=== PATIENT | female | born 1980 | race Two or more races ===

== ENCOUNTER 2017-01-12 16:40 | Outpatient (CLI) | payer OTHER ==
[2017-01-12 17:51] LABS: APPEARANCE,URINE SLIGHTLY-CLOUDY; BILIRUBIN,URINE NEGATIVE (NEGATIVE); GLUCOSE, URINE NEGATIVE (NEGATIVE); KETONES,URINE NEGATIVE (NEGATIVE); LEUKOCYTE ESTERASE,URINE NEGATIVE (NEGATIVE); NITRITE,URINE NEGATIVE (NEGATIVE); PROTEIN,URINE NEGATIVE (NEGATIVE); URINE SPECIFIC GRAVITY 1.013; UROBILINOGEN,URINE NEGATIVE mg/dL (<2.0)
[2017-01-12 18:07] LABS: URINE BARBITURATES SCREEN NEGATIVE; URINE METHADONE SCREEN NEGATIVE; URINE OPIATES LOW NEGATIVE; URINE PHENCYCLIDINE SCREEN NEGATIVE
[2017-01-12 19:06] LABS: CHLAM PCR NOT DETECTED (NOT DETECT)
--- NOTE | 2017-01-12 19:34 | RADIOLOGY REPORT (SQ) ---
EXAM DESCRIPTION: U/S OB LIMITED COMPLETED DATE/TIME: 01/12/2017 7:24 pm REASON FOR STUDY: Cervical length, YANCY, presentation COMPARISON: None. TECHNIQUE: Limited transabdominal grayscale ultrasound for evaluation of specific requested obstetri lencho parameters. LIMITATIONS: None. FINDINGS: CERVICAL LENGTH: 2.7 cm Closed. YANCY: 16.6 cm. FHR: 140 beats per minute. PRESENTATION: Cephalic. OTHER: No other significant findings. IMPRESSION: LIMITED OBSTETRICAL ULTRASOUND WITH MEASURED PARAMETERS DELINEATED ABOVE. Trimester of : Third trimester - 28 weeks to delivery. TECHNICAL DOCUMENTATION: JOB ID: [id number]- All Rights Reserved
== END 2017-01-12 20:26 | disposition home or self-care (01) ==
LOC: LC 16:40
PROVIDERS: ATTEND Student in an Organized Health Care Education/Training Program
PROC: 4A1HXCZ Monitoring of Products of Conception, Cardiac Rate, External Approach (ICD-10-PCS; principal; 2017-01-12)
DX: O26.893 Other specified pregnancy related conditions, third trimester (principal); E86.0 Dehydration; O99.613 Diseases of the digestive system complicating pregnancy, third trimester; K92.89 Other specified diseases of the digestive system; Z3A.28 28 weeks gestation of pregnancy
CPT/HCPCS: 76815; 80307; 81001; 87086; 87491; 87591

== ENCOUNTER 2017-02-16 12:11 | Outpatient (CLI) | payer OTHER ==
--- NOTE | 2017-02-16 13:01 | Non Stress Test Report ---
Non Stress Test Datetime Report Generated by CPN: 02/16/2017 13:01 DEMOGRAPHIC EGA NST: 33.6 INDICATION Indication for Study: Ordered by Provider VITAL SIGNS Temperature - NST: 97.7 Pulse - NST: 110 RESP - NST: 18 NBPSYS NST: 97 NBPDIA NST: 57 MONITORING Monitor Explained: Monitor Explained; Test Explained; Patient Verbalized Understanding Time on Monitor: 02/16/2017 12:20 Time off Monitor: 02/16/2017 12:52 NST Duration: 32 NST INTERVENTIONS NST Interventions: PO Hydration; Reposition Patient Physician Notified NST: DR DIVINE BABY A: [id number] BABY A Movement : Present Contraction Frequency : NONE FHR Baseline : 145 Accelerations : 15X15 Decelerations : None Variability : Moderate 6-25bpm NST Review: Meets Criteria for Reactive NST NST Review and Verified By : Jace Rodriguez RNC NST Results: Reactive NST REPORT Report Trigger: Send Report
== END 2017-02-16 12:55 | disposition home or self-care (01) ==
LOC: LC 12:11
PROVIDERS: ATTEND Obstetrics & Gynecology
PROC: 4A1HXCZ Monitoring of Products of Conception, Cardiac Rate, External Approach (ICD-10-PCS; principal; 2017-02-16)
DX: O09.523 Supervision of elderly multigravida, third trimester (principal); Z3A.33 33 weeks gestation of pregnancy
CPT/HCPCS: 59025

== ENCOUNTER 2017-03-06 11:45 | Outpatient (CLI) | payer OTHER ==
[2017-03-06 12:31] LABS: APPEARANCE,URINE SLIGHTLY-CLOUDY; BILIRUBIN,URINE NEGATIVE (NEGATIVE); GLUCOSE, URINE NEGATIVE (NEGATIVE); KETONES,URINE NEGATIVE (NEGATIVE); LEUKOCYTE ESTERASE,URINE TRACE (NEGATIVE); NITRITE,URINE NEGATIVE (NEGATIVE); PROTEIN,URINE NEGATIVE (NEGATIVE); URINE SPECIFIC GRAVITY 1.006; UROBILINOGEN,URINE NEGATIVE mg/dL (<2.0)
[2017-03-06 12:54] LABS: URINE BARBITURATES SCREEN NEGATIVE; URINE METHADONE SCREEN NEGATIVE; URINE OPIATES LOW NEGATIVE; URINE PHENCYCLIDINE SCREEN NEGATIVE
== END 2017-03-06 12:43 | disposition home or self-care (01) ==
LOC: LC 11:45
PROVIDERS: ATTEND Obstetrics & Gynecology Gynecology
PROC: 4A1HXCZ Monitoring of Products of Conception, Cardiac Rate, External Approach (ICD-10-PCS; principal; 2017-03-06)
DX: O24.419 Gestational diabetes mellitus in pregnancy, unspecified control (principal); O09.523 Supervision of elderly multigravida, third trimester; Z3A.36 36 weeks gestation of pregnancy
CPT/HCPCS: 59025; 80307; 81005

== ENCOUNTER 2017-03-24 09:46 | Inpatient (IN) | payer OTHER ==
--- NOTE | 2017-03-24 09:59 | Non Stress Test Report ---
Non Stress Test Datetime Report Generated by CPN: 03/24/2017 09:59 DEMOGRAPHIC EGA NST: 36.3 INDICATION Indication for Study: Ordered by Provider Indication for Study (NST) Other: gdm VITAL SIGNS Temperature - NST: 99.3 Pulse - NST: 114 RESP - NST: 16 NBPSYS NST: 109 NBPDIA NST: 65 MONITORING Monitor Explained: Monitor Explained; Test Explained; Patient Verbalized Understanding Time on Monitor: 03/06/2017 11:59 Time off Monitor: 03/06/2017 12:39 NST Duration: 40 NST INTERVENTIONS NST Interventions: None Physician Notified NST: A Emmel CNM BABY A: [id number] Movement : Present Contraction Frequency : none FHR Baseline : 155 Accelerations : 15X15 Decelerations : None Variability : Moderate 6-25bpm NST Review: Meets Criteria for Reactive NST NST Review and Verified By : Jace Rodriguez [facility] NST Results: Reactive NST REPORT Report Trigger: Send Report
[2017-03-24 10:43] LABS: APPEARANCE,URINE CLOUDY; BILIRUBIN,URINE NEGATIVE (NEGATIVE); GLUCOSE, URINE NEGATIVE (NEGATIVE); KETONES,URINE NEGATIVE (NEGATIVE); LEUKOCYTE ESTERASE,URINE TRACE (NEGATIVE); NITRITE,URINE NEGATIVE (NEGATIVE); PROTEIN,URINE NEGATIVE (NEGATIVE); URINE SPECIFIC GRAVITY 1.017; UROBILINOGEN,URINE NEGATIVE mg/dL (<2.0)
[2017-03-24 10:46] LABS: AMNISURE (ROM) NEGATIVE (NEGATIVE)
[2017-03-24 11:07] LABS: URINE BARBITURATES SCREEN NEGATIVE; URINE METHADONE SCREEN NEGATIVE; URINE OPIATES LOW NEGATIVE; URINE PHENCYCLIDINE SCREEN NEGATIVE
[2017-03-24] MEDS ORDERED: DINOPROSTONE 10 MG VAGINAL INSERT.SR ONE (11:42)
[2017-03-24] MEDS ORDERED: DINOPROSTONE 10 MG VAGINAL INSERT.SR PV PRN (11:44)
[2017-03-24] MEDS ORDERED: RINGERS SOLUTION,LACTATED 300 ML IV ONE (11:44)
[2017-03-24 12:38] LABS: ABSOLUTE LYMPHOCYTES (AUTO) 1.7 10^3/uL (0.5-4.7); ABSOLUTE MONOCYTES (AUTO) 0.4 10^3/uL (0.1-1.4); ABSOLUTE NEUT (AUTO) 4.3 10^3/uL (1.7-8.2); BASOPHILS % (AUTO) 0.1 % (0-2); EOSINOPHILS % (AUTO) 0.5 % (0-6); HEMOGLOBIN 12.8 g/dL (12.0-15.5); HGB HCT DIFFERENCE 0.4; LYMPHOCYTES % (AUTO) 26.3 % (13-45); MEAN CORPUSCULAR HEMOGLOBIN 31.5 pg (27.0-33.4); MEAN CORPUSCULAR HGB CONC 33.8 g/dL (32.0-36.0); MEAN CORPUSCULAR VOLUME 93 fl (80-97); MONOCYTES % (AUTO) 6.7 % (3-13); RED BLOOD COUNT 4.07 10^6/uL (3.72-5.28); RED CELL DISTRIBUTION WIDTH 14.6 % (11.5-14.0); SEGMENTED NEUTROPHILS % (AUTO) 66.4 % (42-78); WHITE BLOOD COUNT 6.4 10^3/uL (4.0-10.5)
[2017-03-24] MEDS: RINGERS SOLUTION,LACTATED 1,000 ML IV PRN (19:30)
[2017-03-24] MEDS ORDERED: OXYTOCIN/NORMAL SALINE 20 UNIT/1,000 ML RTUINJ IV PRN (23:14)
[2017-03-25] MEDS ORDERED: OXYTOCIN/NORMAL SALINE 20 UNIT/1,000 ML RTUINJ ONE (01:18)
[2017-03-25] MEDS ORDERED: OXYTOCIN/NORMAL SALINE 20 UNIT/1,000 ML RTUINJ IV PRN ×2 (06:03→14:25)
[2017-03-25] MEDS ORDERED: NALBUPHINE HCL INJ 10 MG/1 ML AMPULE ONE (08:16)
[2017-03-25] MEDS ORDERED: PROMETHAZINE HCL INJ 25 MG/1 ML VIAL ONE (08:16)
[2017-03-25] MEDS ORDERED: PROMETHAZINE HCL INJ 25 MG/1 ML VIAL IV ONE (08:21)
[2017-03-25] MEDS ORDERED: NALBUPHINE HCL INJ 10 MG/1 ML AMPULE INJ ONE (08:21)
[2017-03-25] MEDS ORDERED: MISOPROSTOL 0.2 MG TABLET ONE (09:03)
[2017-03-25] MEDS ORDERED: LIDOCAINE 1% INJ-PF (10 MG/ML) 30 ML SDV ONE (09:03)
[2017-03-25] MEDS: RINGERS SOLUTION,LACTATED 1,000 ML IV PRN (11:52)
[2017-03-25] MEDS ORDERED: FENTANYL CITRATE INJ/PF 100 MCG/2 ML AMPUL ONE (12:06)
[2017-03-25] MEDS ORDERED: EPHEDRINE SULFATE INJ 50 MG/1 ML AMPULE ONE (12:06)
[2017-03-25] MEDS ORDERED: PHENYLEPHRINE HCL INJ/PF 10 MG/1 ML SDV ONE (12:06)
[2017-03-25] MEDS ORDERED: BUPIVACAINE HCL 0.25 % INJ/PF (2.5 MG/1 ML) 30 ML VIAL ONE (12:07)
[2017-03-25] MEDS ORDERED: FENTANYL/BUPIVACAINE/NS/PF 200 MCG/100 ML RTUINJ EPI ONE (12:07)
[2017-03-25] MEDS ORDERED: MEASLES,MUMPS&RUBELLA VACC/PF 0.5 ML VIAL SUBCUT PRN (14:25)
[2017-03-25] MEDS ORDERED: ZOLPIDEM TARTRATE 5 MG TABLET PO PRN (14:25)
[2017-03-25] MEDS ORDERED: ACETAMINOPHEN WITH CODEINE #3 TABLET PO PRN ×2 (14:25)
[2017-03-25] MEDS ORDERED: DIPH/PERTUSS(ACELL)/TETANUS VAC/PF 0.5 ML SYR (>=10YO) IM PRN (14:25)
[2017-03-25] MEDS ORDERED: BENZOCAINE/MENTHOL AEROSOL SPRAY 56 ML TOP PRN (14:25)
[2017-03-25] MEDS ORDERED: DIBUCAINE 1% OINTMENT 28 GM TP PRN (14:25)
--- NOTE | 2017-03-25 16:19 | Admission Physical ---
Datetime Report Generated by CPN: 03/25/2017 16:18 CURRENT ADMISSION Chief Complaint: Uterine Contractions; Scheduled Induction of Labor Indication for Induction: Other Indication for Induction: No Active Labor Indication for Induction- Other: AMA Admit Plan: Admit to Unit; Initiate Labor Induction Protocol ALLERGIES Medication Allergies: Yes Medication Allergies: metoclopramide (03/24/2017) Medication Allergies: metoclopramide (02/16/2017) Medication Allergies: metoclopramide (01/12/2017) Latex: No Latex Allergies OBSTETRICAL HISTORY EDC: 03/31/2017 00:00 : 3 Para: 2 Term: 2 : 0 SAB: 0 IAB: 0 Ectopic: 0 Livin Cesareans: 0 VBACs: 0 Multiple Births: 0 Gestational Diabetes: No Rh Sensitization: No Incompetent Cervix: No ROX: No Infertility: No ART Treatment: No Uterine Anomaly: No IUGR: No Hx Previous C/S: No Macrosomia: No Hx Loss/Stillborn: No PIH: No Hx : No Placenta Previa/Abruption: No Depression/PP Depression: No PTL/PROM: No Post Hemorrhage: No Current Procedures: Ultrasound Obstetrical History Comments: G1- 2000 7lb 7 oz G2- SAB G3- SAB G4- NSV 2010 7lb 0oz G5- current - anterior placenta with posterior accesory lobe SEE RECORDS Alcohol: No Marijuana : No Cocaine: No Other Illicit Drugs: No Cigarettes: Never Smoker. [id number] MEDICAL HISTORY Diabetes: No Blood Transfusion: No Pulmonary Disease (Asthma, TB): No Breast Disease: No Hypertension: No Research Attorney Surgery: No Heart Disease: No Hosp/Surgery: Yes Autoimmune Disorder: No Anesthetic Complications: No Kidney Disease: No Abnormal Pap Smear: No Neuro/Epilepsy: No Psychiatric Disorders: No Other Medical Diseases: No Hepatitis/Liver Disease: No Significant Family History: No Varicosities/Phlebitis: No Trauma/Violence : No Thyroid Dysfunction: No Medical History Comments: Tachycardia during pregnancies INFECTIOUS HISTORY Gonorrhea: No Genital Herpes: No Chlamydia: No Tuberculosis: No Syphilis: No Hepatitis: No HIV/AIDS Exposure: No Rash or Viral Illness: No HPV: No PHYSICAL EXAM General: Normal HEENT: Deferred Neurologic: Deferred Thyroid: Deferred Heart: Normal Lungs: Normal Breast: Deferred Back: Deferred Abdomen: Deferred Genitourinary Exam: Normal Extremities: Normal DTRs: Deferred Pelvic Type: Adequate VAGINAL EXAM Dilatation: 2 Effacement: 30 Station: -3 MEMBRANES Membranes: Intact FETUS A EGA: 39.0 Monitoring: External US FHR- Baseline: 130 Variability: Moderate 6-25bpm Decelerations: None FHR Category: Category I Admit Comment: cervidil per Sudheer PLANS FOR LABOR AND DELIVERY Labor and Delivery: None Pain Management: Epidural Feeding Preference: Breast Benefit of Breast Feed Discussed: Yes Circumcision: N/A INFORMED CONSENT Assignment: Nadia Willard MD Signature: with User ID: [email or web address] : with User ID: [email or web address]
--- NOTE | 2017-03-25 16:38 | Delivery Summary ---
Del Sum A-C Datetime Report Generated by CPN: 03/25/2017 16:37 DELIVERY PERSONNEL DELIVERY PERSONNEL: [id number] Delivery Doctor:: Dr. Morton Labor and Delivery Nurse:: Sheeba Bernal RNoil bay technician Nurse:: Marlen Das RN Nursery Nurse:: Brittany Ortega RN Transfer Station Attendant/PLASTICS ENGINEERING TEACHER: Josh Abernathy, CHARTER DRIVER MATERNAL INFORMATION Delivery Anesthesia: Epidural Medications After Delivery: Pitocin Drip 20 Units/1000ml NSS Estimated Blood Loss (ml): 400 Maternal Complications: None Provider Comments: Normal spontaneous vaginal delivery of female over superficial vaginal laceration. Nuchal cord easlily reduced after delivery of head. Placenta delivered spontaneous complete. LABOR SUMMARY EDC: 03/31/2017 00:00 No. Babies in Womb: 1 Attempted: No Labor Anesthesia: Epidural LABOR INFORMATION Reason for Induction: Other Reason for Induction- Other: AMA Onset of Labor: 03/25/2017 08:32 Complete Dilatation: 03/25/2017 13:55 Cervical Ripening Agents: Cervidil Oxytocin: Induction Group B Beta Strep: neg Antibiotics # of Doses: 0 Antibiotics Time of Last Dose: n/a Name of Antibiotic Given: n/a Steroids Given: None Reason Steroids Not Administered: Not Applicable MEMBRANES Membranes Rupture Method: Spontaneous Rupture of Membranes: 03/25/2017 12:57 Length of Rupture (hr): 1.17 Amniotic Fluid Color: Clear Amniotic Fluid Amount: Moderate Amniotic Fluid Odor: Normal STAGES OF LABOR Stage 1 hr: 5 Stage 1 min: 23 Stage 2 hr: 0 Stage 2 min: 12 Stage 3 hr: 0 Stage 3 min: 2 Total Time in Labor hr: 5 Total Time in Labor min: 37 VAGINAL DELIVERY Episiotomy: None Laceration #1: Vaginal Other Laceration: superficial Laceration Repair: Yes Laceration Repair Note: One interrupted suture of 3-0 Chronic Sponge Count Correct: Yes Sharps Count Correct: Yes CSECTION DELIVERY Primary Indication: N/A Secondary Indication: N/A CSection Incision: N/A BABY A INFORMATION Delivery Date/Time: 03/25/2017 14:07 Method of Delivery: Vaginal Born in Route : No : N/A Forceps: N/A Vacuum Extraction: N/A Shoulder Dystocia : Yes PRESENTATION/POSITION BABY A Presentation: Cephalic Cephalic Presentation: Vertex Vertex Position: Left Occipital Anterior Breech Presentation: N/A PLACENTA INFORMATION BABY A Placenta Delivery Time : 03/25/2017 14:09 Placenta Method of Delivery: Spontaneous Placenta Status: Delivered SCORES BABY A Heart Rate 1 min: >100 bpm Resp Effort 1 min: Good Cry Reflex Irritability 1 min: Cough or Sneeze or Pulls Away Muscle Tone 1 min: Active Motion Color 1 min: Body [place], Extremities Blue Resuscitation Effort 1 min: Tactile Stimulation SCORE 1 MIN: 9 Heart Rate 5 min: >100 bpm Resp Effort 5 min: Good Cry Reflex Irritability 5 min: Cough or Sneeze or Pulls Away Muscle Tone 5 min: Active Motion Color 5 min: Body [place], Extremities Blue Resuscitation Effort 5 min: Tactile Stimulation SCORE 5 MIN: 9 INFORMATION BABY A Gestational Age at Delivery: 39.1 Gestational Status: Full Term- 39- 40.6 Weeks Infant Outcome : Liveborn Infant Condition : Stable Sex: Female IDENTIFICATION BABY A Verification Date/Time: 03/25/2017 14:26 ID Band Number: [id number] Mother's Name Verified: Yes RN Verifying : RJoao Bernal, RN/ H. Steph, RN WEIGHT/LENGTH BABY A Birthweight (gm): 3730 Infant Weight (lb): 8 Weight (oz): 4 Length (in): 20.50 Length (cm): 52.07 CORD INFORMATION BABY A No. Cord Vessels: 3 Nuchal Cord : Around Neck x1, Loose Cord Blood Taken: Yes-For Storage (Mom's Blood type +) Suction: Mouth; Nose ASSESSMENT BABY A Infant Complications: Multiple Variable Decels Physical Findings at Delivery: Within Normal Limits Infant Respirations: Appears Normal Skin to Skin: Yes Stumper Feller/ALS Called : No Care By: Brittany Ortega RN Transferred To: Remains with Mother BABY B INFORMATION : N/A SIGNATURES Signature: with User ID: [email or web address]
[2017-03-25] MEDS ORDERED: INFLUENZA ADLT QUAD (36MOS+) 2017-18 VAC 0.5 ML SYR IM PRN (16:53)
[2017-03-25] MEDS: FERROUS SULFATE 325 MG TABLET PO SCH (17:56)
[2017-03-25] MEDS: DOCUSATE SODIUM 100 MG CAPSULE PO SCH (17:56)
[2017-03-25] MEDS: IBUPROFEN 800 MG TABLET PO SCH (21:07)
[2017-03-26] MEDS: IBUPROFEN 800 MG TABLET PO SCH ×2 (06:00→13:37)
[2017-03-26 07:18] LABS: HEMATOCRIT 31.6 % (36.0-47.0); HEMOGLOBIN 10.7 g/dL (12.0-15.5); HGB HCT DIFFERENCE 0.5; MEAN CORPUSCULAR HEMOGLOBIN 31.5 pg (27.0-33.4); MEAN CORPUSCULAR HGB CONC 33.8 g/dL (32.0-36.0); MEAN CORPUSCULAR VOLUME 93 fl (80-97); RED BLOOD COUNT 3.39 10^6/uL (3.72-5.28); RED CELL DISTRIBUTION WIDTH 14.5 % (11.5-14.0)
[2017-03-26 09:21] VITALS: BP 97/56
--- NOTE | 2017-03-26 09:30 | PDOC PROGRESS REPORT ---
Subjective-OB Subjective: Post Delivery Day: 36 year old. Does not desire to go home today. complaining of pain not controlled with ibuprofen and gas pains but not yet passing gas. tolerating regular diet. bleeding normal. Also was taking PCN for tooth infection which has not been restarted in hospital. plans to see a dentist this week. Physical Exam (OB) Vital Signs: Temp Pulse Resp BP Pulse Ox 98.7 F 87 16 97/56 L 98 03/26/17 07:55 03/26/17 07:55 03/26/17 07:55 03/26/17 07:55 03/26/17 07:55 Intake & Output 03/25/17 03/26/17 03/27/17 06:59 06:59 06:59 Intake Total 1000 Balance 1000 Weight 84.4 kg - Abdomen Description: Soft, Round Fundal Description: Firm, Midline Fundal Height: u/u - u/2 - Abdominal Tenderness: Nontender - Extremities Lower extremities: Quique's sign - neg Calf: Normal, Nontender Objective-Diagnostic Laboratory: 03/26/17 06:40 03/26/17 06:40 WBC 7.0 RBC 3.39 L Hgb 10.7 L D Hct 31.6 L MCV 93 MCH 31.5 MCHC 33.8 RDW 14.5 H Plt Count 161 Assessment and Plan(PN) - Time Spent with Patient Time with patient: Less than 15 minutes - Disposition Anticipated Discharge: Home Within: within 24 hours
[2017-03-26] MEDS ORDERED: SIMETHICONE 80 MG TAB.CHEW PO PRN (09:32)
[2017-03-26] MEDS: DOCUSATE SODIUM 100 MG CAPSULE PO SCH (09:35)
[2017-03-26] MEDS: FERROUS SULFATE 325 MG TABLET PO SCH (09:35)
[2017-03-26] MEDS ORDERED: SENNOSIDES/DOCUSATE 8.6-50 MG 1 EACH TABLET PO SCH (10:00)
[2017-03-26] MEDS ORDERED: PRENATAL VITAMIN W DHA CAPSULE PO SCH (10:00)
[2017-03-26] MEDS ORDERED: PENICILLIN V POTASSIUM 500 MG TABLET PO SCH (12:00)
--- NOTE | 2017-03-26 18:01 | PDOC DISCHARGE SUMMARY ---
Final Diagnosis Discharge Date: 03/26/17 - Final Diagnosis (1) Advanced maternal age (AMA) in Is this a current diagnosis for this admission?: Yes (2) Normal vaginal delivery Is this a current diagnosis for this admission?: Yes Discharge Data - Discharge Medication Home Medications: Vit/Iron Fum/Folic AC [ Tablet] 1 tab PO DAILY 02/16/17 Penicillin V Potassium [Penicillin Vk 500 mg Tablet] 500 mg PO QID 03/24/17 Ibuprofen [Motrin 800 mg Tablet] 800 mg PO Q8 tablet 03/26/17 Reason(s) for Admission: Onset of Labor Procedures: NST Intrapartum Procedure(s): Spontaneous Vaginal Delivery - Diagnosis Test Laboratory: Temp Pulse Resp BP Pulse Ox 98.7 F 87 16 97/56 L 98 03/26/17 14:39 03/26/17 14:39 03/26/17 14:39 03/26/17 07:55 03/26/17 14:39 03/24/17 03/24/17 03/26/17 09:57 12:14 06:40 RBC 4.07 3.39 L Hgb 12.8 10.7 L D Hct 38.0 31.6 L Urine Opiates Screen NEGATIVE - Discharge information/Instructions Discharge Activity: Balance Activity w/Rest, Pelvic Rest Discharge Diet: Regular Disposition: HOME, SELF-CARE Follow up with: [facility] in: 4, Weeks
== END 2017-03-26 19:05 | disposition home or self-care (01) | DRG 775 ==
LOC: LC 09:46 → LR 11:20 → 2N 03-25 16:15
PROVIDERS: ADMIT Obstetrics & Gynecology; ATTEND Obstetrics & Gynecology
PROC: 3E033VJ Introduction of Other Hormone into Peripheral Vein, Percutaneous Approach (ICD-10-PCS; 2017-03-24)
PROC: 10E0XZZ Delivery of Products of Conception, External Approach (ICD-10-PCS; principal; 2017-03-25)
PROC: 0KQM0ZZ Repair Perineum Muscle, Open Approach (ICD-10-PCS; 2017-03-25)
PROC: 3E0P7VZ Introduction of Hormone into Female Reproductive, Via Natural or Artificial Opening (ICD-10-PCS; 2017-03-25)
DX: O71.4 Obstetric high vaginal laceration alone (principal); Z37.0 Single live birth; Z3A.39 39 weeks gestation of pregnancy; O69.81X0 Labor and delivery complicated by cord around neck, without compression, not applicable or unspecified; O09.523 Supervision of elderly multigravida, third trimester
CPT/HCPCS: 36415; 80307; 81005; 84112; 85025; 85027; 86592; 86850; 86900; 86901; 90686; 94760; J2300; J2370; J2550; J2590; J3010; J3490